=== PATIENT | female | born 1935 | race Two or more races ===

== ENCOUNTER → 2018-08-27 | Outpatient (CLI) | payer OTHER | END | disposition home or self-care (01) | LOC: NUCLEAR 12:39 | DX: I65.29 Occlusion and stenosis of unspecified carotid artery (principal) ==

== ENCOUNTER 2018-11-18 09:31 | Inpatient (IN) | payer OTHER ==
[~2018-11-18] VITALS: Ht 162.6 cm; Wt 59.0 kg
[2018-11-18] MEDS ORDERED: LEVOTHYROXINE25 MCG (09:49)
[2018-11-18] MEDS ORDERED: CYMBALTA20 MG (09:50)
[2018-11-18] MEDS ORDERED: AMARIL (09:50)
[2018-11-18] MEDS ORDERED: LEVEMIR100 UNIT/1 (09:50)
[2018-11-18] MEDS ORDERED: SIMVASTATIN5 MG (09:50)
[2018-11-19] MEDS ORDERED: GLIMEPIRIDE1 MG PO (08:30)
[2018-11-23] MEDS ORDERED: ELIQUIS2.5 MG PO (10:09)
[2018-11-23] MEDS ORDERED: ULTRACET PO (10:09)
== END 2018-11-23 15:26 | DRG 470 ==
LOC: ER 09:31 → SURH 18:02
PROVIDERS: ADMIT Orthopaedic Surgery
PROC: 30233N1 Transfusion of Nonautologous Red Blood Cells into Peripheral Vein, Percutaneous Approach (ICD-10-PCS; 2018-11-19)
PROC: 0SRR0JZ Replacement of Right Hip Joint, Femoral Surface with Synthetic Substitute, Open Approach (ICD-10-PCS; principal; 2018-11-19 14:00)
DX: S72.041A Displaced fracture of base of neck of right femur, initial encounter for closed fracture (principal); D62 Acute posthemorrhagic anemia; W18.39XA Other fall on same level, initial encounter; M81.0 Age-related osteoporosis without current pathological fracture; M16.11 Unilateral primary osteoarthritis, right hip; E03.8 Other specified hypothyroidism; E11.40 Type 2 diabetes mellitus with diabetic neuropathy, unspecified; E78.49 Other hyperlipidemia; J44.9 Chronic obstructive pulmonary disease, unspecified; K64.8 Other hemorrhoids; Z90.49 Acquired absence of other specified parts of digestive tract; Z79.4 Long term (current) use of insulin; Z88.0 Allergy status to penicillin